=== PATIENT | male | born 1995 | race Caucasian/White ===

== ENCOUNTER 2021-09-22 03:48 | Emergency (ER) | payer OTHER ==
[2021-09-22 03:56] VITALS: BP 127/87; PULSE 72; RESP 18; TEMP 98.4
[2021-09-22] MEDS ORDERED: ACETAMINOPHEN TAB 500 MG TAB PO STA (04:32)
[2021-09-22] MEDS ORDERED: IBUPROFEN 800 MG TAB PO STA (04:32)
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
== END 2021-09-22 05:22 | disposition home or self-care (01) ==
LOC: EC 03:48
DX: M25.531 Pain in right wrist (principal); V99.XXXA Unspecified transport accident, initial encounter
CPT/HCPCS: 99284

== ENCOUNTER → 2024-07-12 | Outpatient (CLI) | payer BC ==
[2024-07-12 10:19] LABS: Basophils # (A) 0.07 X 10*3/uL (0.00-0.10); Basophils % (A) 1.2 %; Eosinophils # (A) 0.24 X 10*3/uL (0.04-0.35); HCT 47.3 % (39.6-50.0); HGB 16.3 g/dL (13.0-17.0); Lymphocytes # (A) 2.24 X 10*3/uL (0.90-5.00); Lymphocytes % (A) 37.2 %; MCH 29.4 pg (27.0-32.0); MCHC 34.5 g/dL (32.0-37.0); MCV 85.2 FL (80.0-97.0); Mean Platelet Volume 9.8 FL (9.5-12.2); Monocytes # (A) 0.66 X 10*3/uL (0.20-1.00); NRBC Per 100 WBC 0 X 10*3/uL (0.00-0.01); Neutrophils % (A) 46.4 %; Platelet Count 258 X 10*3/uL (140-440); RBC 5.55 X 10*6/uL (4.40-5.60); RDW 12.3 % (11.5-14.5); WBC 6.02 X 10*3/uL (4.50-10.00)
[2024-07-12 11:01] LABS: ALT 41 U/L (10-49); AST 43 U/L (14-35); Albumin 4.7 g/dL (3.8-4.9); Albumin/Globulin Ratio 1.96 Ratio (1.60-3.17); Alkaline Phosphatase 65 U/L (41-126); BUN/Creat Ratio 13.79 Ratio (12.00-20.00); Blood Urea Nitrogen 19.3 mg/dL (9.0-27.0); Calcium 9.6 mg/dL (8.7-10.3); Chloride 101 mmol/L (96-109); Chol/HDL Ratio 3.43 Ratio; Globulin 2.4 g/dL (1.6-3.3); Glucose 88 mg/dL (70-110); Potassium 4.2 mmol/L (3.5-5.5); Sodium 139 mmol/L (135-145); Total Bilirubin 0.8 mg/dL (0.3-1.2); Total Protein 7.1 g/dL (6.2-8.2); VLDL Calculation 16.66 mg/dL (5.00-40.00)
== END | disposition home or self-care (01) ==
LOC: LABWHC1 07:30
PROVIDERS: ATTEND Family Medicine
DX: Z00.00 Encounter for general adult medical examination without abnormal findings (principal)
CPT/HCPCS: 36415; 80053; 80061; 83036; 84443; 85025